=== PATIENT | male | born 1975 | race Hispanic/Latino ===

== ENCOUNTER 2018-05-16 17:45 | Observation (INO) | payer OTHER ==
[~2018-05-16 17:45] MED LIST: Dexamethasone 20 MG/5 ML VIAL ONE; Glycopyrrolate 0.2 MG/ML 5 ML SYRINGE ONE; Lidocaine 1% PF 5 ML VIAL ONE; Ondansetron HCl/PF 4 MG/2 ML Vial ONE; PROPOFOL 200 MG/20 ML VIAL ONE; Succinylcholine Chloride 20 MG/ML 10 ml SYRINGE FS ONE
[2018-05-16] MEDS ORDERED: Piperacillin/Tazobactam 3.375 GM VIAL ONE ×2 (18:55→23:43)
[2018-05-16 19:18] LABS: Hemoglobin 8.8 g/dL (14.0-18.0); Mean Corpuscular HGB CONC 29.4 g/dL (32.0-36.0); Mean Corpuscular Hemoglobin 18.4 pg (27.0-31.0); Mean Corpuscular Volume 62.7 fL (78.0-98.0); Mean Platelet Volume 9.7 fL (7.4-10.4); Platelet Count 361 thou/uL (130-400); RBC Distribution Width 15.6 % (11.5-14.5); Red Blood Cell (RBC) Count 4.78 mill/uL (4.70-6.10); White Blood Cell (WBC) Count 9.9 thou/uL (4.8-10.8)
[2018-05-16 19:25] LABS: Bilirubin Negative (Negative); Blood, Urine Negative (Negative); Clarity CLEAR (Clear); Glucose, Urine (Dipstick) Negative (Negative); Leukocyte Negative (Negative); Nitrite Negative (Negative); Protein, Urine (Dipstick) Trace mg/dL (Neg-Trace); Specific Gravity, Urine 1.018 (1.002-1.036); pH, Urine 7.5 (5.0-9.0)
[2018-05-16 19:35] LABS: ALT (SGPT) 11 U/L (8-55); AST (SGOT) 28 U/L (5-34); Albumin 4.4 g/dL (3.5-5.0); Alkaline Phosphatase 87 U/L (40-150); Anion Gap 13 mmol/L (10-20); BUN (Urea Nitrogen) 9 mg/dL (8.9-20.6); Calc. Creatinine Clearance 0 mL/min (70-130); Calcium 9.7 mg/dL (7.8-10.44); Carbon Dioxide 25 mmol/L (22-29); Chloride 107 mmol/L (98-107); Estimated GFR-MDRD 87; Globulin 3.6 g/dL (2.4-3.5); Glucose 96 mg/dL (70-105); Potassium 3.9 mmol/L (3.5-5.1); Sodium 141 mmol/L (136-145)
--- NOTE | 2018-05-16 19:38 | HP ---
DATE OF ADMISSION: 05/16/2018 HISTORY OF PRESENT ILLNESS: Mr. Presley is a 42-year-old inmate of a correctional facility. The patient was brought by guards to the emergency department. He reports 3-day history of worsening severe rectal pain associated with intermittent rectal bleeding. He denies any fevers or chills. He states over the last one month, he has had intermittent episodes of rectal bleeding which resolved spontaneously. He denies any unexplained weight loss. He denies any anal or rectal trauma. PAST SURGICAL HISTORY: Denies any previous medical problems. PAST SURGICAL HISTORY: Pertinent for a right wrist surgery many years ago. SOCIAL HISTORY: Patient is former drug user including K2. He denies any ethanol or cigarette smoking history. He states that he has been incarcerated for over the last 25 years. FAMILY HISTORY: Denies any family history of diabetes mellitus, hypertension, heart disease or cancer. CURRENT MEDICATIONS: None. ALLERGIES: Patient denies any known drug allergies. REVIEW OF SYSTEMS: A 10-point review of systems essentially unremarkable except for as stated in past medical history and chief complaint. PHYSICAL EXAMINATION: GENERAL: This reveals a 42-year-old normally developed man who is otherwise coherent and interactive and appears stated age. The patient is alert and oriented x3. He appears to be in acute distress secondary to severe rectal pain. VITAL SIGNS: Currently includes blood pressure 122/77, pulse 82, respiratory rate is 16, temperature is 98.7 degrees Fahrenheit, oxygen saturation is 100% on room air. HEENT: Examination reveals normocephalic and atraumatic. HEART: Reveals regular rate and rhythm, no murmurs or gallops auscultated. LUNGS: Clear to auscultation bilaterally. Breathing is regular and unlabored. ABDOMEN: Soft, nontender and nondistended. Bowel sounds in all four quadrants appear normoactive. Liver and spleen nonpalpable below costal margins. GENITOURINARY: Rectal examination was difficult; however, there is visible very large and exquisitely tender hemorrhoids at 3 and 6 o'clock. No active rectal bleeding is noted. I did not perform any digital rectal examination which is deferred to surgery. NEUROLOGIC: Examination reveals no focal deficits present. IMPRESSION: Acute thrombosed external hemorrhoids. PLAN: Rectal examination under anesthesia and hemorrhoidectomy. Above findings and plan has been discussed with the patient who indicates understanding of information given. I have advised him of the risk and proposed surgery. Risks include, but not limited to bleeding, infection, injury to sphincter as well as postoperative anorectal stenosis. The patient indicates understanding of information I have provided him today. I have answered his questions. I did also inform his industrial controller by phone. The patient and his warden have both granted consent for this admission and surgical intervention. ROYAL
[2018-05-16 19:43] LABS: #Basophils 0.1 thou/uL (0.0-0.2); #Eosinphils 0.1 thou/uL (0.0-0.7); #Lymphocytes 2.3 thou/uL (1.20-3.40); #Monocytes 0.8 thou/uL (0.11-0.59); #Neutrophils 6.7 thou/uL (1.40-6.50); %Basophils 0.7 % (0.0-1.0); %Eosinophils 0.6 % (0.0-10.0); %Lymphocytes 22.8 % (21.0-51.0); %Monocytes 8.5 % (0.0-10.0); %Neutrophils 67.4 % (42.0-75.0); Anisocytosis SLIGHT = 6-15 cells (100X) (0-5/hpf); Elliptocytes SLIGHT = 2-5 cells (100X) (0-1/hpf); Hypochromia SLIGHT = 6-15 cells (100X) (0-5/hpf); MDiff Complete? YES; Microcytosis SLIGHT = 6-15 cells (100X) (0-5/hpf); PLT Morphology Comment Appears Adequate; Poikilocytosis SLIGHT = 6-15 cells (100X) (0-5/hpf); Tear Drops SLIGHT = 2-5 cells (100X) (0-1/hpf)
[2018-05-16] MEDS ORDERED: Fentanyl 100 MCG/2 ML VIAL ONE (22:37)
[2018-05-16] MEDS ORDERED: Bupivacaine HCl 0.5%/Epinephrine 1:200,000/PF 30 ml Vial ONE (22:45)
[2018-05-16] MEDS ORDERED: Lidocaine 2% PF Inj 2 ML VIAL ONE (22:45)
[2018-05-16] MEDS ORDERED: Lidocaine 2% Jelly 5 ML TUBE ONE ×2 (22:45→23:58)
[2018-05-17] MEDS ORDERED: Ondansetron HCl/PF 4 MG/2 ML Vial IVP PRN ×2 (00:18→00:30)
[2018-05-17] MEDS ORDERED: Promethazine HCl 25 MG/ML VIAL IM PRN (00:18)
[2018-05-17] MEDS ORDERED: Promethazine HCl 25 MG/ML VIAL SLOW IVP PRN (00:18)
[2018-05-17] MEDS ORDERED: Dextrose 5% in Water 1,000 ML IV PRN (00:30)
[2018-05-17] MEDS ORDERED: Dextrose 50% Abboject 50 ML SYRINGE SLOW IVP PRN (00:30)
[2018-05-17] MEDS ORDERED: traMADol HCl 50 MG TAB PO PRN (00:32)
[2018-05-17] MEDS ORDERED: Acetaminophen 500 MG TAB PO SCH (00:45)
[2018-05-17] MEDS: Ibuprofen 800 MG TAB PO SCH ×3 (01:41→16:53)
[2018-05-17 02:21] VITALS: BMI 25.2
--- NOTE | 2018-05-17 03:21 | OP ---
DATE OF OPERATION: 05/17/2018 PREOPERATIVE DIAGNOSIS: Acute thrombosed hemorrhoids. POSTOPERATIVE DIAGNOSIS: Acute thrombosed hemorrhoids. PROCEDURE PERFORMED: Excision of thrombosed hemorrhoids. SURGEON: Ryan Salgado D.O. ANESTHESIA: General endotracheal. ESTIMATED BLOOD LOSS: Less than 5 mL. FLUIDS GIVEN: 500 mL crystalloids. SPONGE AND INSTRUMENT COUNT: Certified as correct x2. COMPLICATIONS: None apparent at the time of operation. INDICATIONS FOR PROCEDURE: A 42-year-old man, an inmate of a correctional facility, presented with a 3-day history of worsening rectal pain associated with intermittent bleeding. Clinical examination was consistent with acute thrombosed hemorrhoids. The larger of the two hemorrhoids at 3 o'clock and a second nonthrombosed was at 6 o'clock. Rectal examination was not performed in the emergency department. Therefore, the patient was brought to the operating room for rectal examination under anesthesia followed by hemorrhoidectomy. DESCRIPTION OF PROCEDURE: Informed consent obtained from the patient who was brought to the operatin g room and placed in supine position. Following general anesthesia, the patient was placed in the pr one jackknife position. The anorectal region was sterilely prepped and draped in usual fashion. Rec marjorie examination revealed no palpable masses proximal to the dentate line. External thrombosed hemorr hoids were noted at 3'o clock. There was a smaller and large hemorrhoids at 6'o clock, but nonthromb osed. We then decided to excise the large thrombosed hemorrhoid at 6'o clock. The skin here was inf iltrated generously with 0.25% Marcaine with epinephrine. Using a 15 scalpel, the skin was incised. We placed an anal speculum to gain exposure into the anus. We then used a 3-0 Vicryl to ligate the hemorrhoid distal to the dentate line. Using a LigaSure device, the thrombosed hemorrhoids were exci sed. Speculum examination reveals no injuries to the sphincter. The specimen was passed off the ope rative field for onward transmission to pathology. Good hemostasis noted in place. A Gelfoam with X ylocaine was rolled as a unit and inserted into the operative site. A pad and mesh pants were then a pplied. The patient tolerated the operation without any apparent complication and was returned to [facility] recovery room in satisfactory condition.
[2018-05-17] MEDS: Acetaminophen 500 MG TAB PO SCH ×3 (06:22→17:03)
[2018-05-17 07:15] LABS: #Lymphocytes 0.7 thou/uL (1.20-3.40); #Monocytes 0.1 thou/uL (0.11-0.59); #Neutrophils 9.3 thou/uL (1.40-6.50); %Basophils 0.1 % (0.0-1.0); %Eosinophils 0.1 % (0.0-10.0); %Monocytes 0.6 % (0.0-10.0); %Neutrophils 92.2 % (42.0-75.0); Hemoglobin 8.1 g/dL (14.0-18.0); Mean Corpuscular HGB CONC 28.8 g/dL (32.0-36.0); Mean Corpuscular Hemoglobin 18.1 pg (27.0-31.0); Mean Platelet Volume 9.8 fL (7.4-10.4); Platelet Count 340 thou/uL (130-400); RBC Distribution Width 15.7 % (11.5-14.5); Red Blood Cell (RBC) Count 4.46 mill/uL (4.70-6.10)
[2018-05-17 07:28] LABS: Anion Gap 11 mmol/L (10-20); BUN (Urea Nitrogen) 10 mg/dL (8.9-20.6); Calc. Creatinine Clearance 83 mL/min (70-130); Calcium 8.8 mg/dL (7.8-10.44); Carbon Dioxide 21 mmol/L (22-29); Chloride 108 mmol/L (98-107); Estimated GFR-MDRD 75; Glucose 181 mg/dL (70-105); Magnesium 2.2 mg/dL (1.6-2.6); Phosphorus 3.3 mg/dL (2.3-4.7); Potassium 3.9 mmol/L (3.5-5.1); Sodium 136 mmol/L (136-145)
[2018-05-17] MEDS: traMADol HCl 50 MG TAB PO PRN ×2 (08:06→16:08)
[2018-05-17 08:14] LABS: Hypochromia MODERATE=16-30 cells (100X) (0-5/hpf); MDiff Complete? YES; Microcytosis MODERATE=15-30 cells (100X) (0-5/hpf); Ovalocytes SLIGHT = 2-5 cells (100X) (0-1/hpf); PLT Morphology Comment Appears Adequate
[2018-05-17] MEDS: Polyethylene Glycol 3350 17 GM Packet PO SCH (09:15)
[2018-05-17] MEDS: Senokot S 8.6-50 MG TAB PO SCH ×2 (09:15→21:17)
[2018-05-17] MEDS ORDERED: Tamsulosin HCl 0.4 MG CAP PO SCH (10:06)
[2018-05-18] MEDS: Ibuprofen 800 MG TAB PO SCH ×2 (00:28→08:33)
[2018-05-18] MEDS: Acetaminophen 500 MG TAB PO SCH ×3 (00:28→13:17)
[2018-05-18] MEDS: traMADol HCl 50 MG TAB PO PRN ×2 (00:30→06:22)
[2018-05-18] MEDS: Polyethylene Glycol 3350 17 GM Packet PO SCH (08:32)
[2018-05-18] MEDS: Senokot S 8.6-50 MG TAB PO SCH (08:33)
[2018-05-18] MEDS ORDERED: Dutasteride 0.5 MG CAP PO SCH (09:00)
[2018-05-18] MEDS ORDERED: Tamsulosin HCl 0.4 MG CAP PO SCH (09:00)
[2018-05-18] MEDS ORDERED: diphenhydrAMINE 25 MG CAP PO PRN (09:22)
--- NOTE | 2018-05-18 14:17 | PRG ---
DATE OF SERVICE: 05/18/2018 SUBJECTIVE: Mr. Presley is a 42-year-old man, who is postoperative day #1, status post hemorrhoidec parish. The patient reports adequate pain control. He is tolerating general diet. He had urinary ret ention, which required a Gilbert catheterization. PHYSICAL EXAMINATION: VITAL SIGNS: This morning includes blood pressure 104/65, pulse 76, respiratory rate is 18, temperat ure is 97.6 degrees Fahrenheit, oxygen saturation 97% on room air. RECTAL EXAMINATION: Surgical site is clean, dry, no active bleeding or hematoma present. IMPRESSION: 1. Postoperative day #1 status post hemorrhoidectomy. 2. Acute urinary retention. Patient has a known history of benign prostatic hypertrophy. 3. Flomax and Avodart has been initiated. We will remove Gilbert catheter later today. 4. We anticipate discharge tomorrow if patient is able to urinate. If patient continues with urinar y retention, which requires replacement of Gilbert catheter, the Gilbert catheter will be left in place f or 3-5 days with a followup at the Urology Clinic.
[2018-05-18 16:08] VITALS: BP 107/66; TEMP 98.1
--- NOTE | 2018-05-19 14:00 | DIS-2 ---
DATE OF ADMISSION: 05/17/2018 DATE OF DISCHARGE: 05/18/2018 RESIDENT: Haleigh Quiñones M.D. ADMITTING ATTENDING: Ryan Salgado D.O. DISCHARGE ATTENDING: Ryan Salgado D.O. CONSULTATIONS: None. PROCEDURES: Excision of thrombosed hemorrhoids. PRIMARY DIAGNOSIS: Acute thrombosed hemorrhoids. SECONDARY DIAGNOSIS: None. DISCHARGE MEDICATIONS: 1. Acetaminophen 1000 mg p.o. every 6 hours p.r.n. for pain. 2. Ibuprofen 800 mg p.o. every 8 hours for pain. 3. MiraLax 17 grams p.o. daily for 2 weeks. 4. Senokot S 8.6 mg/50 mg tab 2 tabs p.o. b.i.d. for 2 weeks. 5. Flomax 0.4 mg daily. 6. Tramadol 50 mg p.o. every 6 hours p.r.n. for pain. DISCONTINUED MEDICATIONS: None. HOSPITAL COURSE: The patient is a 42-year-old gentleman who is an inmate of a correctional facility who was brought by guards to the emergency department with a chief complaint of a 3-day history of worsening severe rectal pain with associated intermittent bleeding. On presentation to the emergency department, the patient's vitals were noted to be within normal limits; however , the patient reported his pain to be 10/10 in severity. He was given one dose of IV Zosyn and a 1 liter bolus of normal saline. General Surgery was then consulted to come and evaluate the patient in the emergency department. Upon evaluation, the patient was noted to have two actively thrombosed hemorrhoids at the 3 and 6 o'clock positions that were exquisitely tender. No active rectal bleeding was noted. It was then recommended that the patient have a rectal exam under anesthesia and an urgent hemorrhoidectomy. The patient was then taken back to the operating room for a hemorrhoidectomy and admitted for observation overnight and pain control. The following morning, the patient reported that his pain was decently controlled on PO pain medications and said that he was passing some gas but had not yet had a bowel movement. Also, of note, the patient reported significant urinary retention and stated that he had been having issues with retention prior to his hospital admission. A bladder scan was then performed which showed 626 mL of post-void urinary retention and a Gilbert catheter was placed. It was therefore recommended that the patient follow up with Urology upon discharge and that a Gilbert catheter remain in place until he could do so. A daily dose of 0.4 mg of Flomax was also started to be given daily. However, the following morning, the patient's Gilbert catheter was removed as it was noted that the patient had already been on Flomax prior to this presentation. It was therefore decided that the patient was medically stable and could be discharged to custodial as soon as an [facility] became available. By the day of discharge, the patient reported that his pain was still adequately controlled on p.o. pain medications. He was able to ambulate and tolerate p.o. without any difficulty. He was therefore discharged back to custodial to an [facility] bed on 05/18/2018 in stable condition. DISPOSITION: Stable. DISCHARGE INSTRUCTIONS: 1. Location: Care Home. 2. Diet: Regular diet. 3. Activity: As tolerated. 4. Followup: The patient was instructed to follow up routinely with the custodial /infirmary physician upon discharge. ROYAL
--- NOTE | 2018-05-21 00:09 | DIS ---
DATE OF ADMISSION: 05/16/2018 DATE OF DISCHARGE: 05/18/2018 OPERATIONS PERFORMED: Hemorrhoidectomy on 05/17/2018. Please see separate dictation for the operati ve report. HISTORY AND HOSPITAL COURSE: This is a 42-year-old, an inmate of a correctional facility. The patie nt presented with acute thrombosed hemorrhoids, which required excision. Following an uneventful excision of thrombosed hemorrhoids, the patient was admitted to surgical [facility] where he remained at the time of discharge. Postop day #1, he is ambulating with minimum difficult y. His pain is adequately controlled on oral analgesics. He has no bleeding present. He is tolerat ing general diet, normal bowel and urinary function. He did have urinary retention, which required o ne straight catheterization. The patient, ultimately, had a spontaneous void. He was determined to have maximized hospital benefit and was discharged back to the correctional facility with the followi ng instructions: 1. The patient was to follow up with me in the Surgery Clinic in 2 weeks. 2. He is to take stool softeners to avoid constipation. He is instructed to resume all his prehospi talization medications. Additionally, he may take Tylenol 1000 mg p.o. q.6 hours alternating this with ibuprofen 800 mg p.o. q.8 hours p.r.n. pain. He may also take tramadol 50 mg 1-2 p.o. q.6 hours p.r.n. breakthrough pain. This information was spent with the patient, who indicates understanding of the information given. I have answered his questions.
--- NOTE | 2018-05-22 16:30 | EKG ---
Test Reason : Blood Pressure : / mmHG Vent. Rate : 078 BPM Atrial Rate : 078 BPM P-R Int : 132 ms QRS Dur : 078 ms QT Int : 388 ms P-R-T Axes : 057 059 044 degrees QTc Int : 442 ms Normal sinus rhythm Normal ECG Confirmed by GARRY RAY ([id number]), editor publications ISSA LEE ([id number]) on 05/22/2018 4:29:51 PM Referred By: Confirmed By:GARRY RAY
== END 2018-05-18 16:55 ==
LOC: EEVIPCON 17:45 → ERS 17:45 → SDC/OP 23:21 → SURG B 05-17 00:30 → SURG A 05-17 01:14
PROVIDERS: ADMIT Surgery; ATTEND Surgery
PROC: 065Y0ZC Destruction of Hemorrhoidal Plexus, Open Approach (ICD-10-PCS; principal; 2018-05-17)
DX: K64.5 Perianal venous thrombosis (principal)
CPT/HCPCS: 36415; 51702; 80048; 80053; 81003; 83735; 84100; 85025; 85060; 88304; 93005; 96361; 96365; G0378; J0670; J1100; J2001; J2405; J2543; J2704; J3010